=== PATIENT | male | born 1975 | race African-American/Black ===

== ENCOUNTER 2023-08-07 09:32 | Emergency (ER) | payer SELFPAY ==
[~2023-08-07] VITALS: Ht 170.1 cm; Wt 90.7 kg
[2023-08-07 10:21] LABS: BASO % 0.5 % (0.0-1.0); EOS # 0.2 10*3/uL (0.0-0.4); HEMATOCRIT 40.9 % (42.0-52.0); LYMPH # 2.6 10*3/uL (1.3-4.4); LYMPH % 42.7 % (27.0-41.0); MEAN CELL VOLUME 86.8 fl (80.0-94.0); MEAN CORPUSCULAR HGB CONC 32.3 g/dl (33.0-37.0); MEAN PLATELET VOLUME 9.3 fl (9.6-12.3); MONO # 0.5 10*3/uL (0.1-1.0); NEUT # 2.6 10*3/uL (2.3-7.9); NEUT % 43.6 % (47.0-73.0); PLATELET COUNT AUTOMATED 335 10*3/uL (130-400); RED BLOOD COUNT 4.71 10*6/uL (4.50-5.90); RED CELL DISTRI WIDTH 12.3 % (0-14.5)
[2023-08-07 10:49] LABS: ALKALINE PHOSPHATASE 60 U/L (46-116); BUN 9 mg/dl (9-23); CHLORIDE 108 mmol/L (98-107); SGPT/ALT 17 U/L (-49); TOTAL PROTEIN 7.2 gm/dL (6.0-8.0)
[2023-08-07] MEDS ORDERED: CYCLOBENZAPRINE5 M3 PO (11:03)
[2023-08-07] MEDS ORDERED: MELOXICAM15 MG PO (11:03)
[2023-08-07] MEDS ORDERED: NICODERM CQ1 EAC2 TD (11:03)
== END 2023-08-07 11:14 | disposition home or self-care (01) ==
LOC: ED 09:32
PROVIDERS: Emergency Medicine
DX: S39.011A Strain of muscle, fascia and tendon of abdomen, initial encounter (principal); F17.210 Nicotine dependence, cigarettes, uncomplicated; X58.XXXA Exposure to other specified factors, initial encounter; Y93.89 Activity, other specified; Y92.89 Other specified places as the place of occurrence of the external cause; Y99.8 Other external cause status